=== PATIENT | male | born 1960 | race Caucasian/White ===

== ENCOUNTER 2022-06-20 11:22 | Emergency (ER) | payer MEDICAID, OTHER ==
[~2022-06-20] VITALS: Ht 162.6 cm; Wt 127.3 kg
[~2022-06-20 11:22] MED LIST: OXYC15TA2 PO; OXYC15TA82 PO
[2022-06-20] MEDS ORDERED: MORPHINE SULFATE 4 MG/ML SYRINGE IVP ONE (12:30)
[2022-06-20] MEDS ORDERED: BARIUM SULFATE 0.1% SUSPENSION 450 ML BOTTLE PO ONE (12:30)
[2022-06-20] MEDS ORDERED: ONDANSETRON HCL 4 MG/2 ML VIAL IVP ONE (12:30)
[2022-06-20 12:47] LABS: BASOPHILS % (AUTO) 0.3 % (0.0-2.0); EOSINOPHILS % (AUTO) 0.6 % (1.0-6.0); HEMATOCRIT 43.4 % (41-53); HEMOGLOBIN 14.8 g/dL (13.5-17.5); LYMPHOCYTES # (AUTO) 1.7 K/uL (1.0-4.8); LYMPHOCYTES % (AUTO) 17.4 % (22.0-44.0); MEAN CORPUSCULAR HEMOGLOBIN 31.7 pg (26.0-34.0); MEAN CORPUSCULAR HGB CONC 34.2 G/dL (31.0-37.0); MEAN CORPUSCULAR VOLUME 93 fL (80-100); MONOCYTES # (AUTO) 1.2 K/uL (0.1-1.0); MONOCYTES % (AUTO) 12.5 % (2.0-9.0); NEUTROPHILS # (AUTO) 6.7 K/uL (1.8-7.7); NEUTROPHILS % (AUTO) 69.2 % (40.0-70.0); PLATELET COUNT (AUTO) 113 K/uL (150-450); RED BLOOD CELL COUNT(AUTO) 4.68 MIL/uL (4.50-5.90); RED CELL DISTRIBUTION WIDTH 14.2 % (11.5-14.5)
[2022-06-20] MEDS ORDERED: IOHEXOL 350 MG/ML 100 ML VIAL ONE (12:50)
[2022-06-20 12:55] LABS: ANION GAP 7 mmol/L (8-16); CALCIUM, TOTAL 8.6 mg/dL (8.8-10.5); CARBON DIOXIDE 27 mmol/L (22-29); CHLORIDE 105 mmol/L (98-107); GLUCOSE,RANDOM 113 mg/dL (70-110); POTASSIUM 3.5 mmol/L (3.5-5.1); SODIUM SERUM 139 mmol/L (136-145); UREA NITROGEN, BLOOD 15 mg/dL (7-18)
[2022-06-20 12:56] LABS: GLOMERULAR FILTR. RATE CALC > 60 mL/min (>60)
[2022-06-20 13:01] LABS: ALANINE AMINOTRANSFERASE 128 U/L (12-78); ALBUMIN 3.2 g/dL (3.4-5.0); ALKALINE PHOSPHATASE 102 U/L (46-116); ASPARTATE AMINOTRANSFERASE 82 U/L (15-37); BILIRUBIN,TOTAL 0.7 mg/dL (0.1-1.0); LIPASE 90 U/L (73-393); TOTAL PROTEIN, SERUM 7.2 g/dL (6.4-8.2)
[2022-06-20 13:05] LABS: B-TYPE NATRIURETIC PEPTIDE 8 pg/mL (0-100)
[2022-06-20 14:37] LABS: APPEARANCE,URINE CLEAR (CLEAR); BILIRUBIN,URINE NEGATIVE (NEGATIVE); GLUCOSE, URINE (UA) NEGATIVE (NEGATIVE); KETONES,URINE NEGATIVE (NEGATIVE); LEUKOCYTE ESTERASE ,URINE TRACE (NEGATIVE); NITRATE,URINE NEGATIVE (NEGATIVE); OCCULT BLOOD,URINE NEGATIVE (NEGATIVE); PROTEIN,URINE NEGATIVE (NEGATIVE); SPECIFIC GRAVITIY, URINE 1.024 (1.003-1.030); UROBILINOGEN,URINE <=1.0 mg/dL (<=1.0)
[2022-06-20 14:46] LABS: BACTERIA,URINE None Seen /HPF (None Seen); RBC,URINE None Seen /HPF (0-2); WBC,URINE 0-2 /HPF (0-5)
[2022-06-20 15:17] VITALS: BP 162/98
== END 2022-06-20 15:42 | disposition home or self-care (01) ==
LOC: EMS 11:22
DX: R10.13 Epigastric pain (principal); I10 Essential (primary) hypertension; Z98.890 Other specified postprocedural states; Z87.19 Personal history of other diseases of the digestive system
CPT/HCPCS: 99285; 74177; 96374; 96375; 80053; 81001; 83690; 83880; 84484; 85025; 36415; 93005; J2270; J2405; Q9967

== ENCOUNTER 2023-07-11 10:41 | Inpatient (IN) | payer MEDICAID, OTHER ==
[~2023-07-11] VITALS: Ht 172.7 cm; Wt 119.3 kg
[2023-07-11] MEDS ORDERED: LABETALOL HCL 5 MG/ML 20 ML VIAL IVP PRN ×2 (10:45)
[2023-07-11] MEDS ORDERED: SODIUM CHLORIDE 0.9% 100 ML ONE (10:48)
[2023-07-11] MEDS ORDERED: IOHEXOL 350 MG/ML 100 ML VIAL ONE (10:48)
[2023-07-11] MEDS ORDERED: CHOL500013 PO (11:00)
[2023-07-11] MEDS ORDERED: OXYC10TA48 PO (11:00)
[2023-07-11] MEDS ORDERED: NALO25TA4 PO (11:00)
[2023-07-11] MEDS ORDERED: DICL112S3 TP (11:00)
[2023-07-11] MEDS ORDERED: OXYC13.5 PO (11:00)
[2023-07-11] MEDS ORDERED: APRE30TA5 PO (11:00)
[2023-07-11 11:17] LABS: BASOPHILS % (AUTO) 3.7 % (0.0-2.0); EOSINOPHILS % (AUTO) 1.5 % (1.0-6.0); HEMATOCRIT 43.8 % (41-53); HEMOGLOBIN 14.7 g/dL (13.5-17.5); LYMPHOCYTES # (AUTO) 1.7 K/uL (1.0-4.8); LYMPHOCYTES % (AUTO) 26.1 % (22.0-44.0); MEAN CORPUSCULAR HEMOGLOBIN 33.2 pg (26.0-34.0); MEAN CORPUSCULAR HGB CONC 33.5 G/dL (31.0-37.0); MEAN CORPUSCULAR VOLUME 99 fL (80-100); MONOCYTES # (AUTO) 0.6 K/uL (0.1-1.0); MONOCYTES % (AUTO) 8.6 % (2.0-9.0); NEUTROPHILS # (AUTO) 3.9 K/uL (1.8-7.7); NEUTROPHILS % (AUTO) 60.1 % (40.0-70.0); RED BLOOD CELL COUNT(AUTO) 4.42 MIL/uL (4.50-5.90); RED CELL DISTRIBUTION WIDTH 15.3 % (11.5-14.5); WHITE BLOOD COUNT (AUTO) 6.5 K/uL (4.5-11.0)
[2023-07-11 11:26] LABS: ANION GAP 8 mmol/L (8-16); CALCIUM, TOTAL 8.4 mg/dL (8.8-10.5); CARBON DIOXIDE 25 mmol/L (22-29); CHLORIDE 102 mmol/L (98-107); CREATININE 0.75 mg/dL (0.60-1.30); GLOMERULAR FILTR. RATE CALC > 60 mL/min (>60); GLUCOSE,RANDOM 138 mg/dL (70-110); POTASSIUM 3.1 mmol/L (3.5-5.1); SODIUM SERUM 135 mmol/L (136-145); UREA NITROGEN, BLOOD 14 mg/dL (7-18)
[2023-07-11 11:31] LABS: INR 1.1 (0.9-1.1)
[2023-07-11 11:32] LABS: ALANINE AMINOTRANSFERASE 157 U/L (12-78); ALKALINE PHOSPHATASE 91 U/L (46-116); ASPARTATE AMINOTRANSFERASE 96 U/L (15-37); BILIRUBIN,TOTAL 1.1 mg/dL (0.1-1.0); TOTAL PROTEIN, SERUM 7.1 g/dL (6.4-8.2)
[2023-07-11 11:34] LABS: TROPONIN I-HIGH SENSITIVITY 6 ng/L (<76)
[2023-07-11 11:48] LABS: PLATELET COUNT (AUTO) 98 K/uL (150-450)
[2023-07-11] MEDS ORDERED: ASPIRIN 300 MG RECTAL SUPPOSITORY PR ONE (12:00)
[2023-07-11] MEDS ORDERED: ONDANSETRON HCL 4 MG/2 ML VIAL IVP PRN (12:15)
[2023-07-11] MEDS ORDERED: ACETAMINOPHEN 325 MG TABLET PO PRN (12:15)
[2023-07-11] MEDS ORDERED: OxyCODONE HCL/ACETAMINOPHEN 5-325 MG TABLET PO PRN (12:15)
[2023-07-11] MEDS ORDERED: MAGNESIUM HYDROXIDE SUSPENSION 30 ML UDCUP PO PRN (12:15)
[2023-07-11] MEDS: ATORVASTATIN CALCIUM 40 MG TABLET PO SCH (12:15)
[2023-07-11] MEDS ORDERED: SODIUM CHLORIDE 0.9% 1,000 ML IV ONE (13:00)
[2023-07-11] MEDS ORDERED: POTASSIUM CHL 10 MEQ/WATER 50 ML IV ONE (13:00)
[2023-07-11] MEDS ORDERED: SUMAtriptan SUCCINATE 6 MG/0.5 ML VIAL SQ ONE (15:15)
[2023-07-11 17:02] VITALS: BP 143/97; PULSE 98; RESP 18; TEMP 98
[2023-07-11] MEDS: OxyCODONE HCL/ACETAMINOPHEN 5-325 MG TABLET PO PRN (17:40)
[2023-07-11] MEDS: HEPARIN SODIUM,PORCINE 5,000 UNITS/ML VIAL SQ SCH (17:44)
[2023-07-11 20:25] VITALS: BP 149/87; PULSE 75; RESP 18; TEMP 98.1
[2023-07-11] MEDS: DOCUSATE SODIUM 100 MG CAPSULE PO SCH (21:00)
[2023-07-12 00:53] VITALS: BP 145/82; PULSE 79; RESP 18; TEMP 97.9
[2023-07-12] MEDS: OxyCODONE HCL/ACETAMINOPHEN 5-325 MG TABLET PO PRN ×3 (04:00→12:33)
[2023-07-12 05:15] VITALS: BP 138/79; PULSE 75; RESP 18; TEMP 98
[2023-07-12 06:46] LABS: CHOL/HDL RATIO 2.3 (4.2-7.3)
[2023-07-12] MEDS ORDERED: SUMAtriptan SUCCINATE 6 MG/0.5 ML VIAL SQ ONE (07:00)
[2023-07-12 07:38] VITALS: BP 126/71; PULSE 73; RESP 18; TEMP 98.7
[2023-07-12] MEDS: HEPARIN SODIUM,PORCINE 5,000 UNITS/ML VIAL SQ SCH ×2 (08:05)
[2023-07-12] MEDS: DOCUSATE SODIUM 100 MG CAPSULE PO SCH (08:06)
[2023-07-12] MEDS: ATORVASTATIN CALCIUM 40 MG TABLET PO SCH (08:06)
[2023-07-12] MEDS ORDERED: ASPIRIN 81 MG CHEWABLE TABLET PO SCH (09:00)
[2023-07-12] MEDS ORDERED: FAMOTIDINE 20 MG TABLET PO SCH (09:00)
[2023-07-12] MEDS ORDERED: RIME75TA PO (10:09)
[2023-07-12] MEDS ORDERED: ASPI81TA87 PO (10:10)
[2023-07-12] MEDS ORDERED: ATOR20TA PO (10:12)
[2023-07-12 11:55] VITALS: BP 124/74; PULSE 67; RESP 18; TEMP 98.4
== END 2023-07-12 14:10 | disposition home or self-care (01) | DRG 54 ==
LOC: EMS 10:42 → EDBD 11:59 → 5S 11:59
PROVIDERS: ADMIT Internal Medicine; ATTEND Internal Medicine
DX: G43.809 Other migraine, not intractable, without status migrainosus (principal); K74.60 Unspecified cirrhosis of liver; E66.9 Obesity, unspecified; G89.4 Chronic pain syndrome; M79.18 Myalgia, other site; R29.810 Facial weakness; I10 Essential (primary) hypertension; H02.401 Unspecified ptosis of right eyelid; M54.81 Occipital neuralgia; Z86.19 Personal history of other infectious and parasitic diseases; Z86.73 Personal history of transient ischemic attack (TIA), and cerebral infarction without residual deficits; Z68.41 Body mass index [BMI] 40.0-44.9, adult; Z79.899 Other long term (current) drug therapy
CPT/HCPCS: 51702; 70496; 70498; 71045; 80053; 80061; 82948; 84484; 85025; 85610; 85730; 86850; 86900; 86901; 92610; 93005; 93306; 93880; 97116; 97161; 99291; J1644; J3030; J3480; J7030; J7050; Q9967; 36415-L1; 36415-TC; 70450; 70450-TC

== ENCOUNTER 2024-07-13 08:21 | Day surgery (SDC) | payer OTHER ==
[~2024-07-13] VITALS: Ht 167.6 cm; Wt 102.3 kg
[~2024-07-13 08:21] MED LIST changes: +OXYC10TA48 PO; -OXYC15TA2 PO; -OXYC15TA82 PO; +SODIUM CHLORIDE 0.9% 1,000 ML ONE
[2024-07-13] MEDS: SODIUM CHLORIDE 0.9% 1,000 ML IV ONE (09:10)
[2024-07-13] MEDS ORDERED: LIDOCAINE/PF 2% 5 ML SYRINGE IVP ONE (12:00)
[2024-07-13] MEDS ORDERED: GLYCOPYRROLATE 0.2 MG/ML VIAL IM ONE (12:00)
[2024-07-13] MEDS ORDERED: FentaNYL CITRATE PF 100 MCG/2 ML VIAL IVP ONE (12:00)
[2024-07-13] MEDS ORDERED: MIDAZOLAM HCL 2 MG/2 ML VIAL IVP ONE (12:00)
[2024-07-13] MEDS ORDERED: PROPOFOL 1% 20 ML VIAL IVP ONE (12:00)
== END 2024-07-13 13:00 | disposition home or self-care (01) ==
LOC: SURGERY 08:21
PROVIDERS: ATTEND Internal Medicine
DX: K92.1 Melena (principal); K64.8 Other hemorrhoids; K64.4 Residual hemorrhoidal skin tags; K74.60 Unspecified cirrhosis of liver; K76.6 Portal hypertension; K31.89 Other diseases of stomach and duodenum; M19.90 Unspecified osteoarthritis, unspecified site; Z79.891 Long term (current) use of opiate analgesic; Z79.899 Other long term (current) drug therapy
CPT/HCPCS: 45378; 43239; 88305; 88312; 88313; C1769; J2704; J3010; J3490 ×2; J2250; J7030

== ENCOUNTER 2024-11-16 06:30 | Day surgery (SDC) | payer OTHER ==
[~2024-11-16] VITALS: Ht 165.1 cm; Wt 127.3 kg
[~2024-11-16 06:30] MED LIST changes: +ALBU18HF12 IH; +PANT-31 PO; -SODIUM CHLORIDE 0.9% 1,000 ML ONE
[2024-11-16] MEDS ORDERED: ATROPINE SULFATE 0.1 MG/ML 10 ML SYRINGE IVP ONE (07:20)
[2024-11-16] MEDS ORDERED: NALOXONE HCL 0.4 MG/ML VIAL ONE (07:20)
[2024-11-16] MEDS ORDERED: DiphenhydrAMINE HCL 50 MG/ML VIAL ONE (07:20)
[2024-11-16] MEDS ORDERED: EPINEPHrine 1:10,000 [1 MG/10 ML] SYRINGE ONE (07:20)
[2024-11-16] MEDS ORDERED: FLUMAZENIL 0.1 MG/ML 5 ML VIAL IVP ONE (07:20)
[2024-11-16] MEDS ORDERED: SODIUM TETRADECYL SULFATE 3% 60 MG/2 ML VIAL IVP ONE (07:20)
[2024-11-16] MEDS: SODIUM CHLORIDE 0.9% 1,000 ML IV ONE (08:22)
[2024-11-16] MEDS ORDERED: GLYCOPYRROLATE 0.2 MG/ML VIAL IM ONE (12:00)
[2024-11-16] MEDS ORDERED: LIDOCAINE/PF 2% 5 ML SYRINGE IVP ONE (12:00)
[2024-11-16] MEDS ORDERED: PROPOFOL 1% 20 ML VIAL IVP ONE (12:00)
== END 2024-11-16 10:05 | disposition home or self-care (01) ==
LOC: SURGERY 06:30
PROVIDERS: ATTEND Internal Medicine
DX: Z12.11 Encounter for screening for malignant neoplasm of colon (principal); K64.8 Other hemorrhoids; K74.60 Unspecified cirrhosis of liver; I25.10 Atherosclerotic heart disease of native coronary artery without angina pectoris
CPT/HCPCS: 45378; J2704; J3490 ×2; J0171; J0461; J1200; J2310